=== PATIENT | female | born 1935 | race Caucasian/White ===

== ENCOUNTER 2018-07-06 12:38 | Inpatient (IN) ==
--- NOTE | 2018-07-06 13:45 | Diag Imaging Result Doc PS360 ---
EXAM: CHEST-1 VIEW 07/06/2018 HISTORY: HIP FX TECHNIQUE: AP upright at 1340 COMMENT: There is no evidence of acute cardiac or pulmonary disease. There are no previous studies available for comparison. IMPRESSION: No acute disease. Electronically signed by Benjamin Layton 07/06/2018 1:43 PM
--- NOTE | 2018-07-06 13:46 | Diag Imaging Result Doc PS360 ---
EXAM: XRAY PELVIS W/HIP 2-3VW LT 07/06/2018 HISTORY: fall TECHNIQUE: AP pelvis and left hip two views COMMENT: There is a femoral left fracture on the left. This was not present on 04/10/2014. There is some subchondral cyst formation in the right femoral head and narrowing of the right hip joint space. IMPRESSION: Fracture left femoral neck. Electronically signed by Benjamin Layton 07/06/2018 1:43 PM
[2018-07-06] MEDS ORDERED: MORPHINE IV ONE (14:06)
[2018-07-06] MEDS ORDERED: ZOFRAN IV ONE (14:06)
--- NOTE | 2018-07-06 14:06 | PROVIDER DOCUMENTATION ---
HPI-Musculoskeletal Pain/Inj - GENERAL Chief Complaint: Hip Pain Stated Complaint: FALL Time Seen by Provider: 07/06/18 13:17 Source: patient - HX OF PRESENT ILLNESS-MUSKULOSKELTAL Nature of Presenting Problem: Patient is an 82 yowf who complains of left hip pain since tripping and falling outdoors [employer]. Denies head injury or any other pain/ injuries. Onset/Duration: just prior to arrival Timing: still present Modifying Factors: improves with: nothing Any recent injury?: Yes - FALL INJURY Location of Pain/Injury: reports: lower extremity Pain Radiation: reports: no radiation Symptoms prior to fall:: reports: none Review of Systems - Adult - REVIEW OF SYSTEMS - ADULT Constitutional: reports: no symptoms reported Eyes: reports: no symptoms reported Ears, Nose, Mouth & Throat: reports: no symptoms reported Cardiovascular: reports: no symptoms reported Respiratory: reports: no symptoms reported Gastrointestinal: reports: no symptoms reported Genitourinary: reports: no symptoms reported Musculoskeletal: reports: see HPI, joint pain (left hip) Integumentary: reports: no symptoms reported Neurological: reports: no symptoms reported Psychiatric: reports: no symptoms reported Endocrine: reports: no symptoms reported Hematologic/Lymphatic: reports: no symptoms reported Allergic/Immunologic: reports: no symptoms reported All Other Systems: Reviewed and Negative Past History - Adult - PAST MEDICAL HISTORY-ADULT Review of Records: reports: Old Records Reviewed, Nursing Assessment Review, Medications Reviewed, Social history reviewed & non-contributory. Major Childhood Illnesses: reports: denies history Cardiovascular: reports: denies history Respiratory: reports: denies history Gastrointestinal: reports: denies history Obstetrical/Gynecological: reports: denies history Genitourinary: reports: denies history Musculoskeletal: reports: other (back pain) Neurological: reports: denies history Endocrine/Immune: reports: denies history Other Conditions: reports: denies history - PRIOR SURGERIES/PROCEDURES Surgical/Procedure History: reports: hysterectomy - IMMUNIZATION STATUS Childhood Immunizations: See Nurse Assessment Flu Vaccine: See Nurse Assessment - FAMILY HISTORY Family History: reviewed, not pertinent - SOCIAL HISTORY Smoking: non-smoker Physical Exam-Injury Related - Physical Exam-Injury Related Initial Vital Signs Reviewed: Yes General Appearance: alert, no apparent distress. negative: lethargic, slow to respond Eyes: PERRL/EOMI, pink conjunctivae Head, Ears, Nose, Mouth & Throat: normocephalic/atraumatic, moist mucous membranes Neck: non-tender, full range of motion, supple, normal inspection Respiratory: chest non-tender, lungs clear, normal breath sounds, no pleuratic chest pain, no respiratory distress, no accessory muscle use Cardiovascular: normal peripheral pulses, regular rate, rhythm, no edema, no gallop, no murmur Peripheral Pulses: dorsalis-pedis (L): 3+ Abdominal Exam: normal bowel sounds, non tender, soft Female Genitalia/Pelvic Exam: deferred Rectal Exam: deferred Back Exam: normal inspection Extremity: normal inspection, normal capillary refill, pelvis stable, tenderness (Left posterior hip tender to palpation. No external rotation of left leg is noted.). negative: deformity, joint effusion, slow capillary refill Integumentary: normal color, warm/dry. negative: cyanosis, diaphoresis, jaundice, mottled, pallor Neurologic: grossly normal, no motor/sensory deficits Psych/Mental Status: normal mood/affect, normal thought content, normal thought process, oriented x 3 Progress - PLAN OF CARE/RESULTS Progress/Plan/Lab Results: Vital Signs - 8 hr 07/06/18 13:15 07/06/18 14:29 Temperature 97.9 F Pulse Rate 96 H Respiratory Rate 18 Blood Pressure 162/82 158/79 O2 Sat by Pulse Oximetry 98 98 Laboratory Results - last 24 hr 07/06/18 07/06/18 07/06/18 14:10 14:10 14:10 WBC 7.45 RBC 4.27 Hgb 13.3 Hct 40.3 MCV 94.4 MCH 31.1 H MCHC 33.0 RDW Std Deviation 13.5 Plt Count 276 MPV 9.4 Immature Gran % (Auto) 0.3 Neut % (Auto) 77.8 H Lymph % (Auto) 11.9 L Rooks % (Auto) 9.3 Eos % (Auto) 0.4 Baso % (Auto) 0.3 Immature Gran # (Auto) 0.02 Neut # (Auto) 5.80 Lymph # (Auto) 0.89 L Rooks # (Auto) 0.69 H Eos # (Auto) 0.03 Baso # (Auto) 0.02 PT 13.0 INR 0.91 PTT (Actin FS) 30.0 Sodium 143 Potassium 3.3 L Chloride 108 H Carbon Dioxide 21 L Anion Gap 14 BUN 10 Creatinine 1.0 H Estimated GFR/1.73 m2 53 BUN/Creatinine Ratio 10 Glucose 110 H Calculated Osmolality 285 Calcium 9.7 Troponin T Blood Type Antibody Screen 07/06/18 07/06/18 14:10 14:10 WBC RBC Hgb Hct MCV MCH MCHC RDW Std Deviation Plt Count MPV Immature Gran % (Auto) Neut % (Auto) Lymph % (Auto) Rooks % (Auto) Eos % (Auto) Baso % (Auto) Immature Gran # (Auto) Neut # (Auto) Lymph # (Auto) Rooks # (Auto) Eos # (Auto) Baso # (Auto) PT INR PTT (Actin FS) Sodium Potassium Chloride Carbon Dioxide Anion Gap BUN Creatinine Estimated GFR/1.73 m2 BUN/Creatinine Ratio Glucose Calculated Osmolality Calcium Troponin T < 0.010 Blood Type A POSITIVE Antibody Screen NEGATIVE Orders Category Date Time Status Admit - [facility] Routine AdmDCTranf 07/06/18 14:31 Active Activity - Strict Bedrest ORDERED Care 07/06/18 14:32 Active Zhong Cath Insertion ORDERED Care 07/06/18 13:31 Active Nursing- MD Consult Request ROUTINE Care 07/06/18 14:31 Active Saline Loc NOW Care 07/06/18 13:58 Active Physician/Provider Consults Routine Cons 07/06/18 14:31 Ordered NPO Diet 07/07/18 00:01 Active Regular Diet Diet 07/06/18 14:32 Active CHEST-1 VIEW [RAD] Stat Exams 07/06/18 13:37 Completed XRAY PELVIS W/HIP 2-3VW LT [RAD] Stat Exams 07/06/18 13:19 Completed BASIC METABOLIC PANEL [CHEM] Stat Lab 07/06/18 14:10 Completed CBC WITH DIFF [HEME] Stat Lab 07/06/18 14:10 Completed PROTIME WITH INR [COAG] Stat Lab 07/06/18 14:10 Completed PTT [COAG] Stat Lab 07/06/18 14:10 Completed TROPONIN T Stat Lab 07/06/18 14:10 Completed TYPE & SCREEN [BBK] Stat Lab 07/06/18 14:10 Completed 0.9% Sodium Chloride Inj [Ns] 1,000 ml Med 07/06/18 14:31 Active IV 75 mls/hr Acetaminophen [Tylenol] Med 07/06/18 14:31 Active 650 mg PO Q6H PRN PRN Bumetanide [Bumex] Med 07/07/18 09:00 Active 0.5 mg PO DAILY Gabapentin [Neurontin] Med 07/06/18 17:00 Active 300 mg PO TID Hydrocodone/APAP 7.5 mg/325 mg [[place]-7.5] Med 07/06/18 14:31 Active See Dose Instructions PO Q4H PRN Lidocaine 5% Patch [Lidoderm] Med 07/07/18 09:00 Active 1 each TOP DAILY Morphine Med 07/06/18 14:06 Discontinued 4 mg IV NOW ONE Omeprazole [Prilosec] Med 07/07/18 09:00 Active 40 mg PO DAILY Ondansetron [Zofran] Med 07/06/18 14:06 Discontinued 4 mg IV NOW ONE Ondansetron [Zofran] Med 07/06/18 14:31 Active 4 mg IV Q4H PRN PRN ROSUVAstatin [Crestor] Med 07/07/18 09:00 Active 10 mg PO DAILY Consent for Surgery Routine Oth 07/06/18 14:35 Ordered EKG [EKG] Stat Ther 07/06/18 13:31 Ordered Transfer/Admit Order [TRANSFER] Routine Transfer 07/06/18 14:[address] Kristina rogers. Admitting HPS ken. Discussed case with Heather who accepted admission. Pt in agreement with this. Result Diagrams: 07/06/18 14:10 07/06/18 14:10 - XRAY 1 XRAY: Left XRAY Study: Pelvis ([facility] [address], [address], [place] [address] Department of Imaging Patient: TRISH DUTTA EADM Date: MR#: [id number] : 1935DM Status: REG ERAcct#: [id number] Age/ Sex: 82/FRoom/Bed: Loc: ED Ordering Physician: Gabo Navarro MD Family Physician: Janice Navarro MD Reason for Procedure: fall Signed EXAM: XRAY PELVIS W/HIP 2-3VW LT 07/06/2018 HISTORY: fall TECHNIQUE: AP pelvis and left hip two views COMMENT: There is a femoral left fracture on the left. This was not present on 04/10/2014. There is some subchondral cyst formation in the right femoral head and narrowing of the right hip joint space. IMPRESSION: Fracture left femoral neck. Electronically signed by Benjamin Layton 07/06/2018 1:43 PM 07/06/18 1343 Interpreting Physician: Benjamin Layton MD Dictated Date/Time: 07/06/18 1343 cc: Gabo Navarro MD; Janice Navarro MD), Hip 2 XRAY Study: Chest ([facility] [address] [place] [address], [address], [place] [address] Department of Imaging Patient: TRISH DUTTA EADM Date: #: [id number] : 7ADM Status: REG ERAcct#: [id number] Age/ Sex: 82/FRoom/Bed: Loc: ED Ordering Physician: Jase Castillo Family Physician: Janice Navarro MD Reason for Procedure: HIP FX Signed * EXAM: CHEST-1 VIEW 07/06/2018 HISTORY: HIP FX TECHNIQUE: AP upright at 1340 COMMENT: There is no evidence of acute cardiac or pulmonary disease. There are no previous studies available for comparison. IMPRESSION: No acute disease. Electronically signed by Benjamin Layton 07/06/2018 1:43 PM 1343 Interpreting Physician: Benjamin Layton MD Dictated Date/Time: 07/06/18 1342 cc: Jase Castillo; Janice Navarro MD) - CONSULTS/PCP/HOSPITALIST Notification #1 *Consult/PCP/Hospitalist*: Dr. Acevedo Time Discussed: 14:14 Consult Disposition: other (Md states to admit to HPS and consult him upon arrival to floor.) #2 Consult: IKER Romero Time Discussed: 14:16 Consult Disposition: Admit (States cannot assign admission md until labs have resulted.) Departure - Departure Date of Disposition Decision: 07/06/18 Time of Disposition Decision: 15:43 DIAGNOSIS: Hip fracture Qualifiers: Encounter type: initial encounter Fracture type: closed Laterality: left Qualified Code(s): S72.002A - Fracture of unspecified part of neck of left femur , initial encounter for closed fracture Disposition: ADMITTED INPATIENT 09 Certified Medical Emergency: Emergent Condition: Stable - Critical Care Note This patient required my direct & personal management of CC.: No Attestation - Physician/ KAYCE Attestation Patient care was provided by Advanced Practice Provider:: Yes Advanced Practice Provider:: Jase Castillo Advanced Practice Provider documentation review:: The Mid-level provider documentation, treatment plan and medical decision making was reviewed by the physician who agrees with all treatment and medical decision making by the [facility]. The physician spent face to face time with patient:: No Advanced Practice Provider documentation review:: Supervising physician onsite and consulted in the evaluation and care of this patient. The physician did not have a face to face encounter with the patient.
[2018-07-06] MEDS ORDERED: ZOFRAN IV PRN (14:31)
[2018-07-06] MEDS ORDERED: TYLENOL PO PRN (14:31)
[2018-07-06 14:35] LABS: BASO# 0.02 X1000 (0.0-0.2); BASO% 0.3 % (0.0-0.8); EOS# 0.03 X1000 (0.0-0.7); EOS% 0.4 % (0.0-10.0); HEMATOCRIT 40.3 % (37.0-47.0); HEMOGLOBIN 13.3 g/dL (12.0-16.0); IMM GRAN# 0.02 X1000 (0.0-0.04); IMM GRAN% 0.3 % (0.0-0.5); LYMPH# 0.89 X1000 (1.2-3.4); LYMPH% 11.9 % (20.5-51.1); MCH 31.1 PG (27-31); MCV 94.4 FL (81-99); MONO# 0.69 X1000 (0.11-0.59); MONO% 9.3 % (1.7-9.3); MPV 9.4 FL (7.4-10.4); NEUT% 77.8 % (42.2-75.2); PLT 276 X1000 (130-400); RBC 4.27 XMIL (4.2-5.4); RDW 13.5 % (11.5-14.5); WBC 7.45 X1000 (4.8-10.8)
[2018-07-06] MEDS ORDERED: DILAUDID IV ONE (14:44)
[2018-07-06 14:54] LABS: CALCIUM 9.7 mg/dL (8.8-10.2); POTASSIUM 3.3 mmol/L (3.5-5.1)
[2018-07-06] MEDS ORDERED: KLOR-CON PO ONE (15:15)
[2018-07-06] MEDS: NS 1,000 ML IV SCH (15:16)
[2018-07-06 15:17] LABS: INR 0.91
[2018-07-06 15:43] LABS: URINE SOURCE CATH
[2018-07-06] MEDS: NORCO-7.5 PO PRN ×2 (15:43→20:48)
[2018-07-06 16:03] LABS: BILIRUBIN URINE NEGATIVE (NEGATIVE); BLOOD URINE NEGATIVE (NEGATIVE); COLOR STRAW; GLUCOSE URINE NEGATIVE (NEGATIVE); KETONE URINE 20 mg/dL (NEGATIVE); LEUKOCYTES URINE NEGATIVE (NEGATIVE); NITRITE URINE NEGATIVE (NEGATIVE); PROTEIN URINE NEGATIVE (NEGATIVE); TURBIDITY URINE CLEAR (CLEAR); UROBILINOGEN URINE NORMAL (NORMAL)
[2018-07-06 16:04] LABS: UR EPITHELIAL CELLS <10 /HPF (<10); URINE BACTERIA NEGATIVE /HPF; URINE RBC <10 /HPF (<10); URINE WBC <10 /HPF (<10)
--- NOTE | 2018-07-06 16:33 | CONSULTATION ---
DATE OF CONSULTATION: 07/06/2018 HISTORY OF PRESENT ILLNESS: This is an 82-year-old, pleasant, white female, who arrived in the emergency department today complaining of left hip pain after a fall outside of her house in the street. She denies head injury. She denies LOC. She reports that she has a history of sciatic nerve pain down that left leg. She denies having any type of heart conditions or lung problems. She denies high blood pressure. She reports she also has osteoarthritis. PAST MEDICAL HISTORY: Osteoarthritis, widespread and low back pain with sciatic nerve pain. PAST SURGICAL HISTORY: She reports hysterectomy. ALLERGIES: Include Celebrex, cephalexin, codeine, Mobic and penicillin. FAMILY HISTORY: Not pertinent. SOCIAL HISTORY: She denies smoking, drinking, or illicit drug use. PHYSICAL EXAMINATION: General: Patient is awake, alert, and talking in bed. HEENT: Head is atraumatic, normocephalic. Eyes are equal, round, reactive. There is moist mucous membranes. Neck: Nontender and supple. Respiratory: There is equal chest rise and fall. Cardiovascular: Regular rate and rhythm, S1, S2. Peripheral pulses are +3. Abdominal Exam: Abdomen is soft, nontender. Extremities: The left lower extremity is shortened and externally rotated. There is mild swelling noted to the left lateral aspect of the hip. There is some anterior joint line tenderness in that hip. There is no redness or signs of infection. There is a negative Homans sign. DIAGNOSTICS: X-ray of the hip was performed and showed a left femoral neck fracture. MEDICATIONS: 1. The patient states she takes gabapentin 300 mg 3 times daily for her low back pain and nerve pain. 2. She also reports that she takes bumetanide 0.5 mg daily for her swelling related to the gabapentin usage. LABS: White blood cells 7.45, hemoglobin 13.3, hematocrit 40.3, platelets 276. INR 0.91. Sodium 143, potassium 3.3, chloride 108, BUN 10, creatinine 1.0, glucose is 110. We are still awaiting a urinalysis at this time. VITAL SIGNS: Blood pressure 158/79, oxygen saturations 98, pulse rate was 82. She is on room air. She is 5 feet 7 inches and 155 pounds. ASSESSMENT: Left femoral neck fracture. PLAN: We will plan on performing a left anterior total hip replacement tomorrow sometime. The Hip replacement will either be done by Dr. Acevedo or Dr. Alexandra depending on when they can get to her. The patient agrees with this plan. All questions were answered. The risk assessment for surgery was performed. The risks and benefits of surgery was went over with the patient and she agrees that it will be in her best interest to have this hip replacement done. Thank you again for the consult. Dictated by ZAHIDA Chavis for Tr Acevedo MD cc: ZAHIDA Chavis MD [facility]
--- NOTE | 2018-07-06 16:35 | HISTORY AND PHYSICAL ---
PRIMARY CARE PROVIDER: Janice Navarro MD. CHIEF COMPLAINT: Fall with left hip pain. HISTORY OF PRESENT ILLNESS: Ms. Karina Graves is an 82-year-old female who looks much younger than her stated age with a medical history of seasonal allergies, hyperlipidemia, and chronic left sciatic nerve pain and apparently some swelling in the lower extremities since April. She states that she had a great day today. She went to the dentist and went shopping. She came home to do some yard work. She was trimming on a bruce that is close to the road and she tripped on her shoe lace. She landed on her left hip and developed severe left hip pain. She was unable to get up. Imaging here reveals that she has a left femoral neck fracture. Dr. Acevedo is aware. Will do an admission for repair. PAST MEDICAL HISTORY: 1. Seasonal allergies where she gets allergy shots. 2. Hyperlipidemia. 3. Chronic left sciatic nerve pain. She uses lidocaine patch and Neurontin for this. 4. Osteoarthritis. 5. Lower extremity swelling since April. States that this is from Neurontin but has not had cardiac workup to rule out CHF. PAST SURGICAL HISTORY: 1. Hysterectomy. 2. Appendectomy. 3. Oophorectomy. 4. Bladder mesh. 5. Tonsillectomy and adenoidectomy. 6. Bilateral cataracts and lens placement. SOCIAL HISTORY: Denies tobacco, alcohol, or illicit drug use. She lives at home alone. FAMILY HISTORY: Mother's side of the family lived to be in their 60s but her mother did have diabetes. She had a brother who had lung cancer. Father lived to . ALLERGIES: Celecoxib, cephalexin, codeine, erythromycin, Mobic, penicillin. HOME MEDICATIONS: 1. Bumex 0.5 mg p.o. daily. 2. Neurontin 300 mg p.o. t.i.d. 3. Crestor 10 mg p.o. daily. 4. Lidocaine patch topically for left sciatic nerve. REVIEW OF SYSTEMS: A 14-point review of systems are complete and all are negative except for those mentioned in above HPI. She complains of pain in the left hip. PHYSICAL EXAMINATION: VITAL SIGNS: Temperature 97.9, heart rate 96, respiratory rate 18, blood pressure 158/79, O2 saturation 98% on room air. She is 5 ft 7 inches tall and weighs 155 pounds. BMI is 24.3. GENERAL: Ms. Karina Graves is an 82-year-old female. She is in no acute distress. She is able to answer questions appropriately. HEENT: Atraumatic, normocephalic. Pupils equal, round, and reactive to light. Extraocular movements intact. Mucous membranes are moist. NECK: Trachea midline. CARDIOVASCULAR: S1, S2. Regular rate and rhythm. No rubs, gallops or murmurs. Trace lower extremity edema. +2 dorsalis and radial pulses. Negative JVD or carotid bruits. PULMONARY: Clear to auscultate, bilateral breath sounds. No accessory muscle use or work of breathing noted. GI: Soft. Nontender. Nondistended. Positive bowel sounds x4. EXTREMITIES: Unable to move left lower extremity due to femoral neck fracture. Moves all other extremities equally. NEUROLOGIC: Alert and oriented x3, follows commands. Sensory is intact. SKIN: Warm, dry, and intact. LABORATORY DATA: White blood cells 7000, hemoglobin 13, hematocrit 40, platelet count 276. Sodium 143, potassium 3.3, BUN 10, creatinine 1.0, glucose 110. Calcium 9.7. Troponin less than 0.01. IMAGING: Chest x-ray with no acute disease. Hip/pelvic x-ray with left femoral neck fracture. ASSESSMENT AND PLAN: 1. Trip and fall, now with left femoral neck fracture. Dr. Acevedo has been consulted and plans for surgical repair tomorrow. So, will do regular diet now and nothing by mouth after midnight. Will treat her with [place] and another form of pain medication. 2. Hyperlipidemia. Continue statin. 3. Chronic left sciatic nerve pain. She uses a lidocaine patch and Neurontin. Will continue those. 4. Osteoarthritis. 5. Seasonal allergies. She gets shots for that. 6. She has had some lower extremity swelling/edema since April. She states this is from the Neurontin but she has not been fully ruled out for any type of heart related swelling. So, will do an echocardiogram. 7. Hypokalemia. Will replace her potassium. 8. Deep venous thrombosis prophylaxis. Sequential compression devices. Dictated by ZAHIDA Cuba for Pilo Rice MD cc: ZAHIDA Cuba MD Patient seen and examined by me. I agree with the assessment and plan of the SCIENTIFIC PROCESS OPERATOR. Dr. Rice. [facility]
[2018-07-06] MEDS: DILAUDID IV PRN (18:21)
[2018-07-06] MEDS: NEURONTIN PO SCH (20:48)
[2018-07-07] MEDS: NORCO-7.5 PO PRN (00:39)
[2018-07-07] MEDS: NS 1,000 ML IV SCH (05:52)
[2018-07-07] MEDS: DILAUDID IV PRN ×3 (05:52→13:34)
[2018-07-07 06:30] LABS: BASO# 0.02 X1000 (0.0-0.2); BASO% 0.3 % (0.0-0.8); EOS% 1.4 % (0.0-10.0); HEMATOCRIT 37.5 % (37.0-47.0); HEMOGLOBIN 11.8 g/dL (12.0-16.0); LYMPH# 1.22 X1000 (1.2-3.4); LYMPH% 17.5 % (20.5-51.1); MCH 30.9 PG (27-31); MCHC 31.5 g/dL (33-37); MCV 98.2 FL (81-99); MONO# 0.85 X1000 (0.11-0.59); MONO% 12.2 % (1.7-9.3); NEUT# 4.77 X1000 (1.4-6.5); NEUT% 68.6 % (42.2-75.2); PLT 246 X1000 (130-400); RBC 3.82 XMIL (4.2-5.4); WBC 6.96 X1000 (4.8-10.8)
[2018-07-07 06:43] LABS: INR 1.06; PROTIME 14.7 Seconds (11.0-16.0)
[2018-07-07 06:44] LABS: PTT 31.3 Seconds (22.3-41.8)
[2018-07-07 06:59] LABS: ALB/GLOB RATIO 1.5; ALBUMIN 3.3 g/dL (3.5-5.0); CALCIUM 8.9 mg/dL (8.8-10.2); CREATININE 0.9 mg/dL (0.5-0.9); POTASSIUM 4.1 mmol/L (3.5-5.1); TOTAL BILIRUBIN 0.49 mg/dL (0.20-1.00); TOTAL PROTEIN 5.5 g/dL (6.3-8.3)
--- NOTE | 2018-07-07 08:32 | ECHO REPORT ---
ORDER DATE: 07/06/2018 INDICATIONS: An 82-year-old female with lower extremity edema for 2 months, left hip fracture. M-MODE MEASUREMENTS: Left ventricle end diastole: 3.4 cm. Left ventricle end systole: 2.2 cm. Posterior wall: 1.0 cm. Interventricular septum: 1.0 cm. Left atrium: 2.7 cm. Aortic root: 3.2 cm. SUMMARY OF 2-DIMENSIONAL IMAGIN. The left ventricular function appears to be normal. Ejection fraction is estimated at 65%-70%. No wall motion abnormality is noted. 2. Aortic valve shows minimal degree of sclerosis of the cusp. They open normally. Color flow mapping unremarkable. 3. Mitral valve looks normal. Color flow mapping unremarkable. 4. Pulse wave Doppler of mitral inflow is basically normal. 5. Tissue Doppler of septal and lateral mitral annulus averages 8 cm. 7. There is no diastolic dysfunction. 8. Pulmonic valve looks grossly normal. 9. Tricuspid valve shows mild degree of regurgitation. 10.The inferior vena cava is not dilated. 11.Pulmonary artery pressure estimated at 44 mmHg. 12.There is no pericardial effusion, mass, and no thrombus. cc: MD Heather Porter CRNP
[2018-07-07] MEDS: BUMEX PO SCH (10:07)
[2018-07-07] MEDS: LIDODERM TOP SCH (10:08)
[2018-07-07] MEDS: PRILOSEC PO SCH (12:41)
[2018-07-07] MEDS: NEURONTIN PO SCH ×3 (12:42→23:25)
--- NOTE | 2018-07-07 13:10 | PROGRESS NOTE ---
DATE: 07/07/2018 SUBJECTIVE DATA: Ms Graves reports she is lying in the bed in bed and has been resting good today. She reports her pain is a 4/10 at this time. She reports there is been a change in her plan, and Dr. Acevedo and she discussed an anterior hip replacement instead of a bipolar hip replacement. She reports she is happy with this plan. OBJECTIVE DATA: There is good sensation of the left lower extremity. There is still shortening of that extremity with some external rotation. There are good pedal pulses. There is good sensation. There is negative Murali's sign. There is no redness or signs of infection. LABORATORY DATA: Labs are all within normal limits. VITAL SIGNS: Stable. ASSESSMENT: Left femoral neck fracture. PLAN: We will plan to do a left anterior hip replacement today at around 5 p.m. The patient agrees with this plan, and we will move forward. Dictated by ZAHIDA Chavis for Tr Acevedo MD cc: ZAHIDA Chavis MD
--- NOTE | 2018-07-07 14:32 | PROGRESS NOTE ---
DATE: 07/07/2018 SUBJECTIVE: Patient resting comfortably in bed. OBJECTIVE: Vital signs: Temperature 98 degrees, pulse 76, respiratory rate 20, blood pressure is 139/70, oxygen saturation 100%. HEENT: Atraumatic, normocephalic. Cardiovascular: S1, S2. Respiratory: Has evidence of good entry bilaterally. ASSESSMENT AND PLAN: Left femoral neck fracture. Orthopedics consulted for possible repair later today. In the meantime optimize pain control. cc: Pilo Rice MD
[2018-07-07] MEDS ORDERED: FENTANYL ONE (15:29)
[2018-07-07] MEDS ORDERED: XYLOCAINE-MPF 2% ONE (15:30)
[2018-07-07] MEDS ORDERED: AMIDATE ONE (15:30)
[2018-07-07] MEDS ORDERED: DURAMORPH ONE (16:00)
[2018-07-07] MEDS ORDERED: TORADOL ONE (16:00)
[2018-07-07] MEDS ORDERED: MARCAINE 0.25% PF ONE (16:00)
[2018-07-07] MEDS ORDERED: EXPAREL 1.3% ONE (16:01)
[2018-07-07] MEDS ORDERED: SODIUM CHLORIDE 0.9% ONE (16:01)
[2018-07-07] MEDS ORDERED: NEOSPORIN G.U. IRRIGANT ONE (16:01)
[2018-07-07] MEDS ORDERED: VANCOMYCIN 1 GM/NS 1 GM/250 ML IVPB ONE (16:01)
[2018-07-07] MEDS ORDERED: MORPHINE ONE (16:44)
--- NOTE | 2018-07-07 19:14 | OPERATIVE NOTE ---
PROCEDURE DATE: 07/07/2018 PREOPERATIVE DIAGNOSIS: Displaced left femoral neck fracture, left hip. POSTOPERATIVE DIAGNOSIS: Displaced left femoral neck fracture, left hip. PROCEDURE: Anterior total hip replacement, left hip. SURGEON: Ellis Acevedo MD AUTOMOTIVE PRODUCT SPECIALIST: ZAHIDA Chavis. Mr. Keller was necessary for proper retraction and manipulation of the hip during the procedure. ANESTHESIA: General. COMPLICATION: None. PROCEDURE IN DETAIL: This 82-year-old female presents for a left hip replacement. She has a left femoral neck fracture which is displaced in a high-demand community ambulator. Risks and benefits of anterior hip replacement were discussed with the patient preoperatively, and she is willing to proceed. She was taken to the operating room and satisfactory anesthesia obtained. She was transferred to the [place] table and the left hip prepped and draped in the usual sterile fashion. A time-out was taken to confirm operative site, procedure, and patient. An anterior approach to the left hip was undertaken with an incision starting 1 cm distal and lateral to the anterior superior iliac spine and carried over the anterolateral aspect of the thigh for roughly 10 cm. Dissection was carried down through the subcutaneous fat. The fascia of the tensor fascia abdelrahman was split in line with the incision and blunt dissection along the inner membrane of the tensor undertaken down to the anterior hip capsule. Cobra retractors were placed over the superior and inferior aspects of the femoral neck and a capsulotomy incision made to expose the fracture. A femoral neck osteotomy was made below the fracture for clean femoral neck cut maybe 6 to 8 mm above the lesser trochanter. The femoral neck fracture and head were removed. A small Cobra retractor was placed directly on the anterior acetabular bone to protect the anterior neurovascular structures during reaming. This was placed with extreme care directly on the anterior acetabular bone. Sequential reaming up to a 51 reamer was undertaken. A DePuy [place] DuoFix MARES-coated cup, size 52 outer diameter, was impacted into the acetabulum in roughly 10 to 15 degrees of anteversion and 45 degrees of abduction. This had secure press-fit fixation. The cup was further stabilized with a 25 length screw in the 12 o'clock position of the cup. A 36 mm inner diameter 0-degree polyethylene bearing was impacted into the cup with secure fixation. The cup liner and liner bone interface was checked and noted to be stable. Traction was released off the leg and the hip extended and externally rotated, utilizing the [place] table to expose the proximal femur. Sequential broaching with the DePuy Actis broach stem was undertaken up to a size 4 stem. This had good axial and rotational stability. A standard neck with a +5 neck length head revealed good jew of the leg length as well as alignment and fit and fill of the implants. The trial femoral stem was removed and an Actis size 4 collared standard neck stem impacted into the proximal femur and secure axial and rotational stability. A ceramic 36 mm +5 head was impacted onto this. The hip was reduced. The C-arm was used to verify near anatomic alignment of leg lengths as well as accurate component position and fit of the implants. The leg was extended roughly 60-70 degrees and externally rotated 75 degrees without any dislocation of the hip. The wound was copiously irrigated with irrigant. The joint was injected with Exparel for pain management and a Hemovac drain placed. The fascia of the tensor fascia was closed with a running V-Loc suture, the subcutaneous with a 2-0 Vicryl, and the skin with skin cy. Sterile dressings completed the closure and the patient was recovered from anesthesia and transferred to the recovery room in stable condition. COMPLICATIONS: No intraoperative complications were noted. COUNTS: Instrument count and sponge count were correct at the time of closure. cc: Tr Acevedo MD
[2018-07-07] MEDS ORDERED: OXY IR PO PRN (21:30)
[2018-07-07] MEDS ORDERED: MORPHINE IV PRN ×3 (21:30)
[2018-07-07] MEDS ORDERED: MILK OF MAGNESIA PO PRN (21:30)
[2018-07-07] MEDS: ULTRAM PO SCH (23:23)
[2018-07-07] MEDS: PERIDEX MT SCH (23:23)
[2018-07-07] MEDS: TYLENOL PO SCH (23:23)
[2018-07-07] MEDS: COLACE PO SCH (23:23)
[2018-07-07] MEDS: CRESTOR PO SCH (23:23)
[2018-07-08] MEDS: LYRICA PO SCH ×3 (02:47→22:14)
[2018-07-08] MEDS ORDERED: VANCOMYCIN 1 GM/NS 1 GM/250 ML IVPB IV ONE (04:30)
[2018-07-08] MEDS: TYLENOL PO SCH ×4 (05:39→22:14)
[2018-07-08] MEDS: ULTRAM PO SCH ×4 (05:39→22:13)
[2018-07-08 06:46] LABS: HEMATOCRIT 30.7 % (37.0-47.0); HEMOGLOBIN 9.4 g/dL (12.0-16.0)
[2018-07-08 07:22] LABS: AGAP 7; BUN 5 mg/dL (8-22); CALCIUM 8.1 mg/dL (8.8-10.2); CHLORIDE 113 mmol/L (98-107); COSMO 284; CREATININE 0.8 mg/dL (0.5-0.9); ESTIMATED GFR > 60; GLUCOSE 167 mg/dL (70-104); POTASSIUM 4.2 mmol/L (3.5-5.1); SODIUM 142 mmol/L (136-145); TCO2 22 mmol/L (25-35)
--- NOTE | 2018-07-08 08:10 | PROGRESS NOTE ---
DATE: 07/08/2018 Ms. Graves is seen status post anterior hip replacement. At the present time she is afebrile and stable. We will plan on mobilizing her today. She can be mobilized with physical therapy. She can be transferred to rehab when available. cc: Tr Acevedo MD
[2018-07-08 09:47] LABS: AGAP 8; BUN 7 mg/dL (8-22); CHLORIDE 110 mmol/L (98-107); COSMO 277; CREATININE 0.8 mg/dL (0.5-0.9); ESTIMATED GFR > 60; GLUCOSE 118 mg/dL (70-104); SODIUM 139 mmol/L (136-145); TCO2 21 mmol/L (25-35)
[2018-07-08] MEDS: NEURONTIN PO SCH ×2 (10:51→14:59)
[2018-07-08] MEDS: CRESTOR PO SCH (10:51)
[2018-07-08] MEDS: COLACE PO SCH ×2 (10:52→22:14)
[2018-07-08] MEDS: PRILOSEC PO SCH (10:52)
[2018-07-08] MEDS: PERIDEX MT SCH ×2 (10:52→22:13)
[2018-07-08] MEDS: PEPCID PO SCH (10:52)
[2018-07-08] MEDS: LIDODERM TOP SCH (10:54)
[2018-07-08] MEDS: BUMEX PO SCH (10:54)
[2018-07-08] MEDS: ZOFRAN PO PRN (12:05)
[2018-07-08 13:48] LABS: IRON SATURATION 9 %; TIBC 175 ug/dL; TOTAL IRON 16 ug/dL (49-151); UNBOUND IRON 159 ug/dL (112-346)
[2018-07-08 14:08] LABS: FERRITIN 304 ng/mL (13-150)
--- NOTE | 2018-07-08 15:05 | PROGRESS NOTE ---
DATE: 07/08/2018 SUBJECTIVE: The patient is awake and seated on the side of the bed. Not in any obvious distress. OBJECTIVE: Vital Signs: Temperature 97.9 degrees, pulse 96, respirations 20, blood pressure 117/50, and oxygen saturation is 99%. HEENT: Atraumatic and normocephalic. Cardiovascular: S1, S2. Respiratory: Evidence of good air entry bilaterally. Extremities: 1 to 2 + edema in both lower extremities. Central nervous system: No obvious focal deficit noted. LABORATORY: Hematocrit is 30.7. Sodium is 139, potassium 4.0, chloride 110, bicarb 21, BUN is 7, and creatinine 0.8. ASSESSMENT AND PLAN: 1. Left femoral neck fracture status post repair. Continue to optimize pain control. Maintain patient on DVT prophylaxis. Initiate use of incentive spirometry, and start physical therapy as recommended by Orthopedics. 2. Anemia. Follow up on hemoglobin and hematocrit. Transfuse PRBC's as needed. We will check iron studies along with B12 and folate levels. 3. Disposition. The patient has placement available. However, she cannot be discharged today until expected requirement is fulfilled for SNF placement which will not be achieved until tomorrow which is 07/09/2018. cc: Pilo Rice MD MTDD
[2018-07-08] MEDS: ZOFRAN IV PRN ×2 (15:54→22:14)
[2018-07-08] MEDS: NS 1,000 ML IV SCH (22:14)
[2018-07-09] MEDS: NEURONTIN PO SCH ×4 (00:36→17:04)
[2018-07-09] MEDS: TYLENOL PO SCH ×4 (04:25→23:03)
[2018-07-09] MEDS: XARELTO PO SCH ×2 (04:25→21:10)
[2018-07-09] MEDS: ULTRAM PO SCH ×4 (04:26→22:59)
[2018-07-09] MEDS: NS 1,000 ML IV SCH ×2 (04:32→18:05)
[2018-07-09 06:22] LABS: HEMATOCRIT 29.5 % (37.0-47.0); HEMOGLOBIN 9.3 g/dL (12.0-16.0)
--- NOTE | 2018-07-09 08:28 | PROGRESS NOTE ---
DATE: 07/09/2018 SUBJECTIVE: Ms. Graves is an 82-year-old female, lying in bed this morning. Overall, feeling pretty well. OBJECTIVE: On left lower extremity exam, her dressing is clean, dry, and intact. She has good dorsiflexion and plantar flexion of the foot and good sensation to light touch to the foot. ASSESSMENT: Status post left anterior total hip. PLAN: Ms. Graves is weight bear as tolerated, left lower extremity. She should be able to be discharged to rehab today. She will see Dr. Acevedo in a few weeks in clinic. cc: Charles Alexandra MD
[2018-07-09] MEDS: OXY IR PO PRN (08:31)
[2018-07-09] MEDS: LYRICA PO SCH ×2 (08:32→23:03)
[2018-07-09] MEDS: LIDODERM TOP SCH (08:32)
[2018-07-09] MEDS: PRILOSEC PO SCH (10:00)
[2018-07-09] MEDS: COLACE PO SCH ×2 (10:23→23:03)
[2018-07-09] MEDS: CRESTOR PO SCH (10:23)
[2018-07-09] MEDS: PEPCID PO SCH (10:23)
[2018-07-09] MEDS: BUMEX PO SCH (10:23)
[2018-07-09] MEDS: PERIDEX MT SCH ×2 (10:24→22:59)
[2018-07-09] MEDS ORDERED: VENOFER 200 MG in NS 100 ML IV ONE (11:40)
--- NOTE | 2018-07-09 13:50 | PROGRESS NOTE ---
DATE: 07/09/2018 SUBJECTIVE: This morning, Ms. Graves refers to be doing a lot better. There were 3 children, all boys, at the bedside at the time of the encounter. She said she had been up, she had moved around with Physical Therapy some today. OBJECTIVE: Vital signs: Blood pressure 127/56, pulse is 73, respirations 16, temperature 97.6 degrees. General: Ms. Graves is an 82-year-old female. She is in bed, no distress. HEENT: Mucosa is pink and moist. Anicteric. Acyanotic. Neck: Supple. Chest: Clear to auscultation. No crepitations. No rhonchi. Cardiovascular: Regular rate and rhythm. There are no murmurs, no rubs, no gallops. Gastrointestinal: Abdomen was soft, distended, but nontender. Bowel sounds present. Extremities: No pedal edema. Distal pulses present. The left lower extremity still has a dressing at the hip level at the site of the recent surgery. LABORATORY DATA: Hemoglobin is 9.3. No new chemistry. Iron studies have been reviewed. Percent saturation is 9, ferritin is 304; however this is acute phase reactant so I think the patient still has some iron deficiency. ASSESSMENT AND PLAN: 1. Status post mechanical fall resulting in a left femoral neck fracture. Patient is status post left anterior hip total replacement. Today is day 2 postop. Has been up with Physical Therapy, also has evaluated her. She is currently on Xarelto for DVT prophylaxis after orthopedic surgery. 2. Normocytic anemia with concomitant iron deficiency. We will give a 1 time infusion of iron and advise patient to be on p.o. iron. 3. Dyslipidemia. We will continue with Crestor. In general, I think Ms. Graves is fairly stable, well kept for her age. She is day 2 status post orthopedic surgery and she is doing well with physical therapy. We are pending rehab placement hopefully on Wednesday for her. I have discussed the plan with her and with all her 3 boys at the bedside as well. cc: Gerald Benson MD
[2018-07-09] MEDS: ZOFRAN IV PRN (23:14)
[2018-07-10] MEDS: ZOFRAN PO PRN (05:58)
[2018-07-10] MEDS: TYLENOL PO SCH ×4 (05:58→23:00)
[2018-07-10] MEDS: XARELTO PO SCH (05:59)
[2018-07-10] MEDS: ULTRAM PO SCH ×4 (06:08→23:00)
[2018-07-10] MEDS: NS 1,000 ML IV SCH (06:10)
[2018-07-10 06:23] LABS: HEMATOCRIT 29.2 % (37.0-47.0); HEMOGLOBIN 9.4 g/dL (12.0-16.0)
[2018-07-10] MEDS: NEURONTIN PO SCH ×2 (08:49→11:38)
[2018-07-10] MEDS: BUMEX PO SCH (08:49)
[2018-07-10] MEDS: PEPCID PO SCH (08:50)
[2018-07-10] MEDS: PRILOSEC PO SCH (08:50)
[2018-07-10] MEDS: LYRICA PO SCH ×2 (08:50→23:00)
[2018-07-10] MEDS: CRESTOR PO SCH (08:51)
[2018-07-10] MEDS: COLACE PO SCH ×2 (08:51→23:01)
[2018-07-10] MEDS: PERIDEX MT SCH ×2 (08:51→23:01)
[2018-07-10] MEDS: LIDODERM TOP SCH (08:58)
[2018-07-10] MEDS: OXY IR PO PRN (11:37)
--- NOTE | 2018-07-10 12:57 | PROGRESS NOTE ---
DATE: 07/10/2018 SUBJECTIVE: This morning, Ms. Graves refers to be doing okay except that she was hurting a lot in her lower abdomen. OBJECTIVE: Vital signs: Blood pressure was 146/63, pulse is 75, respiration is 12, temperature is 97.6 degrees. General: Ms. Graves 82-year-old female. She was in bed. She is not in any cardiopulmonary distress. HEENT: Mucosa is pink and moist. Anicteric. Acyanotic. Neck: Supple. Respiratory System: There was good air entry bilateral. There were no crepitations, no rhonchi. There was no accessory muscle use. Cardiovascular: Regular rate and rhythm. No murmurs, no rubs, no gallops. Gastrointestinal: Abdomen was soft, minimally distended. It is more distended in the lower abdomen, and bladder was distended and easily palpated. Bowel sounds were present. Extremities: No pedal edema. Central nervous system: Patient is awake, alert, and oriented. Musculoskeletal: The left hip still has some sterile dressing over the surgical wound. DIAGNOSTIC STUDIES: Hemoglobin is 9.8, hematocrit is 29.2. No chemistry for this morning. We did a bladder scan on her. She was retaining 852. We are going to do an in-and-out catheterization. ASSESSMENT: 1. Status post mechanical fall, resulting in left femoral neck fracture. Patient is status post left anterior total hip replacement. Today is date 3 postoperative. Physical Therapy is on board, as well as Orthopedics. 2. Urinary retention with distended bladder. I think this is just related to immobility and medications. We are going to do an in-and-out catheterization. Encourage the patient to walk around, get her to sit up in chair, and reexamine her, do another scan in about 4 to 6 hours' time if she has not voided. 3. Normocytic anemia with concomitant iron deficiency. Patient was given iron infusion, and we will continue with p.o. iron. 4. Dyslipidemia. We will continue with Crestor. DISPOSITION: The patient is pending a rehabilitation bed at [facility], hopefully tomorrow. cc: Gerald Benson MD
[2018-07-10] MEDS ORDERED: FERROUS SULFATE PO SCH (21:00)
[2018-07-10] MEDS ORDERED: DITROPAN PO ONE (23:13)
[2018-07-11] MEDS: XARELTO PO SCH ×2 (04:54→11:31)
[2018-07-11] MEDS: TYLENOL PO SCH (04:55)
[2018-07-11] MEDS: ULTRAM PO SCH (04:55)
[2018-07-11 06:13] LABS: BASO# 0.03 X1000 (0.0-0.2); BASO% 0.3 % (0.0-0.8); EOS# 0.28 X1000 (0.0-0.7); EOS% 2.6 % (0.0-10.0); HEMATOCRIT 30.5 % (37.0-47.0); HEMOGLOBIN 9.8 g/dL (12.0-16.0); IMM GRAN# 0.04 X1000 (0.0-0.04); IMM GRAN% 0.4 % (0.0-0.5); LYMPH# 0.98 X1000 (1.2-3.4); LYMPH% 9.3 % (20.5-51.1); MCH 30.6 PG (27-31); MCHC 32.1 g/dL (33-37); MCV 95.3 FL (81-99); MONO# 1.05 X1000 (0.11-0.59); MONO% 9.9 % (1.7-9.3); MPV 9.1 FL (7.4-10.4); NEUT# 8.21 X1000 (1.4-6.5); NEUT% 77.5 % (42.2-75.2); PLT 356 X1000 (130-400); RDW 13.3 % (11.5-14.5); WBC 10.59 X1000 (4.8-10.8)
[2018-07-11 06:58] LABS: AGAP 9; ALBUMIN 2.5 g/dL (3.5-5.0); BUN 7 mg/dL (8-22); CHLORIDE 103 mmol/L (98-107); COSMO 271; CREATININE 0.8 mg/dL (0.5-0.9); ESTIMATED GFR > 60; GLUCOSE 93 mg/dL (70-104); POTASSIUM 3.6 mmol/L (3.5-5.1); SODIUM 137 mmol/L (136-145); TCO2 25 mmol/L (25-35)
[2018-07-11] MEDS ORDERED: MIRALAX PO ONE (11:34)
[2018-07-11] MEDS: ZOFRAN PO PRN (11:36)
[2018-07-11] MEDS ORDERED: DULCOLAX PR ONE (12:10)
--- NOTE | 2018-07-11 12:13 | DISCHARGE SUMMARY ---
ADMISSION DATE: 07/06/2018 DISCHARGE DATE: 07/11/2018 DISPOSITION: [facility]. FOLLOW-UP: 1. Janice Navarro MD 2. Tr Acevedo MD CONSULTATIONS DURING THIS ADMISSION: Orthopedics was consulted. Patient was seen by Dr. Acevedo, followed up by Dr. Alexandra. INVASIVE PROCEDURES DONE DURING THIS ADMISSION: Left anterior total hip replacement was done by Dr. Acevedo on 07/07/2018. IMAGING STUDIES OF SIGNIFICANCE: A hip x-ray showed fracture, left femoral neck. Echocardiogram showed an ejection fraction of 65% to 70%. ADMISSION DIAGNOSES: 1. Left femoral neck fracture status post mechanical fall. 2. Dyslipidemia. 3. Chronic left sciatic nerve pain. 4. Osteoarthritis. DIAGNOSES AT THE TIME OF DISCHARGE: 1. Status post mechanical fall, resulting in left femoral neck fracture. Patient is status post left anterior total hip replacement. Today is day 4. The patient is doing well with physical therapy, and she is going to go to rehabilitation to continue with her physical alevism. 2. Urinary retention. The patient was in-and-out catheterized. Subsequently, she continues to feel better. She has not had any more complaints. 3. Normocytic anemia with concomitant iron deficiency. Patient was given a one-time iron infusion and has been started on oral iron replacement therapy. 4. Dyslipidemia. Will continue with Crestor. DISCHARGE MEDICATIONS: 1. Crestor 10 mg daily. 2. Bumex 0.5 p.o. daily. 3. Colace 100 mg b.i.d. 4. Iron sulfate 325 b.i.d. 5. Milk of magnesia. 6. Omeprazole 40 mg daily. 7. Lyrica 75 b.i.d. 8. Xarelto 10 mg daily. 9. Tramadol 100 mg q.6h p.r.n. 10. Famotidine 20 mg p.o. daily. PRESENTING COMPLAINT: Fall with left hip pain. HISTORY OF PRESENTING COMPLAINT: Ms. Graves is an 82-year-old female who is very active for her age. Does have some comorbidities, including hypertension, osteoarthritis. Sustained a mechanical fall at home and after the fall, she started complaining of a left hip pain. The patient was brought to the emergency department, where she was evaluated. Initial x-rays revealed a left femoral neck fracture. She was subsequently admitted, and Orthopedics was consulted. HOSPITAL COURSE: Ms. Graves did pretty well during the hospital course. She underwent left anterior total hip replacement by Dr. Acevedo post site. Postoperatively, she continues to improve. She was able to do a lot of physical therapy. All her other comorbidities were controlled. About a day before Ms. Graves got discharged, she developed an acute urinary retention. She did undergo an in-and-out catheterization, after which she was able to void without any complications. She denies any burning. She denies any cramps. She denies any dysuric symptoms now. Ms. Graves is clinically stable for discharge She is going to go to a rehabilitation center to continue with physical rehabilitation, and she is going to follow up with her primary care doctor as well as the orthopedic surgeon. At the time of the discharge, there are not any pending labs or imaging studies. DISCHARGE PHYSICAL EXAMINATION: Today Ms. Graves's vitals, blood pressure is 131/56, pulse is 71, respiration is 16, temperature is 97.9 degrees. She is saturating 99% on room air. Physical exam is completely unremarkable. I have also reviewed her labs which are fairly stable. Ms. Graves is being discharged to [facility]. COORDINATION TIME: Time spent for discharge is 36 minutes. cc: MD Janice Tellez MD John R. Riehl, MD
[2018-07-11 12:30] VITALS: BP 148/64
[2018-07-11] MEDS: BUMEX PO SCH (13:13)
== END 2018-07-11 16:08 | DRG 470 ==
LOC: SUPCPDRO → ED 12:38 → SUATTDRO 14:40 → SURHOLD 14:40 → 4N 16:29
PROVIDERS: ATTEND Internal Medicine
CPT/HCPCS: 71010; 71045; 73502; 76000; 80048; 80053; 80069; 81001; 82607; 82728; 82746; 83540; 83550; 83735; 84484; 85014; 85018; 85025; 85610; 85730; 86850; 86900; 86901; 88305; 88311; 93005; 93306; 94760; 94761; 94799; 96374; 96375; 97110; 97116; 97162; 99285; A9270; C9290; J1170; J1756; J1885; J2270; J2274; J2275; J2405; J3010; J3370; J7030; Q9974; S0020